=== PATIENT | male | born 1970 | race Caucasian/White ===

== ENCOUNTER 2016-11-10 09:13 | Emergency (ER) | payer SELFPAY | END 2016-11-10 10:45 | disposition left against medical advice (07) | LOC: NAV ERS 09:13 | DX: K40.90 Unilateral inguinal hernia, without obstruction or gangrene, not specified as recurrent (principal); F17.210 Nicotine dependence, cigarettes, uncomplicated | CPT/HCPCS: 99283 ==

== ENCOUNTER 2017-12-02 12:24 | Outpatient (CLI) | payer OTHER ==
--- NOTE | 2017-12-02 15:15 | RAD ---
LUMBAR SPINE 3 VIEWS: HISTORY: Low back pain, disability evaluation. FINDINGS/IMPRESSION: There are mild degenerative changes with mild levoscoliosis of the lumbar spine. No fracture, sublux ation, or bony destruction is identified. POS: OFF
== END 2017-12-02 12:25 | disposition home or self-care (01) ==
LOC: NAV RAD 12:24
PROVIDERS: ATTEND Family Medicine
DX: M54.5 Low back pain (principal); M47.896 Other spondylosis, lumbar region; M41.86 Other forms of scoliosis, lumbar region
CPT/HCPCS: 72100

== ENCOUNTER 2018-03-31 20:44 | Emergency (ER) | payer OTHER, SELFPAY | END 2018-03-31 21:53 | disposition left against medical advice (07) | LOC: NAV ERS 20:44 | DX: K40.90 Unilateral inguinal hernia, without obstruction or gangrene, not specified as recurrent (principal); Z87.891 Personal history of nicotine dependence | CPT/HCPCS: 93005; 94760 ==

== ENCOUNTER 2018-07-29 21:46 | Emergency (ER) | payer SELFPAY ==
[2018-07-29] MEDS ORDERED: AMOXicillin 250 MG CAP ONE (22:16)
[2018-07-29] MEDS ORDERED: Naproxen 500 MG TAB ONE (22:16)
[2018-07-29] MEDS ORDERED: Penicillin V Potassium 250 MG TAB ONE (22:26)
== END 2018-07-29 22:20 | disposition home or self-care (01) ==
LOC: NAV ERS 21:46
DX: K02.9 Dental caries, unspecified (principal); Z87.891 Personal history of nicotine dependence
CPT/HCPCS: 99283

== ENCOUNTER 2019-02-13 13:59 | Emergency (ER) | payer OTHER, SELFPAY ==
[2019-02-13] MEDS ORDERED: Sodium Chloride 0.9% 1,000 ML ONE (15:22)
[2019-02-13] MEDS ORDERED: Piperacillin/Tazobactam 4.5 GM VIAL ONE (15:22)
[2019-02-13 15:26] LABS: #Basophils 0.1 thou/uL (0.0-0.2); #Eosinphils 0.1 thou/uL (0.0-0.7); #Lymphocytes 1.3 thou/uL (1.20-3.40); #Monocytes 1.3 thou/uL (0.11-0.59); #Neutrophils 7.9 thou/uL (1.40-6.50); %Basophils 0.7 % (0.0-1.0); %Eosinophils 0.6 % (0.0-10.0); %Lymphocytes 12.5 % (21.0-51.0); %Neutrophils 74.2 % (42.0-75.0); Hemoglobin 13.6 g/dL (14.0-18.0); Mean Corpuscular HGB CONC 32.1 g/dL (32.0-36.0); Mean Corpuscular Hemoglobin 26.6 pg (27.0-31.0); Mean Corpuscular Volume 82.8 fL (78.0-98.0); Mean Platelet Volume 7.1 fL (7.4-10.4); Platelet Count 182 thou/uL (130-400); RBC Distribution Width 13.8 % (11.5-14.5); Red Blood Cell (RBC) Count 5.11 mill/uL (4.70-6.10); White Blood Cell (WBC) Count 10.6 thou/uL (4.8-10.8)
[2019-02-13] MEDS ORDERED: Vancomycin HCl 500 MG VIAL ONE (15:27)
[2019-02-13] MEDS ORDERED: Sodium Chloride 0.9% 500 ML ONE (15:30)
[2019-02-13 15:47] LABS: ALT (SGPT) 15 U/L (8-55); AST (SGOT) 20 U/L (5-34); Albumin 3.9 g/dL (3.5-5.0); Alkaline Phosphatase 67 U/L (40-150); Anion Gap 15 mmol/L (10-20); BUN (Urea Nitrogen) 22 mg/dL (8.9-20.6); Bilirubin, Total 0.7 mg/dL (0.2-1.2); CK (CPK) 161 U/L (30-200); Calc. Creatinine Clearance 0 mL/min (70-130); Calcium 9.2 mg/dL (7.8-10.44); Carbon Dioxide 24 mmol/L (22-29); Chloride 103 mmol/L (98-107); Estimated GFR-MDRD 66; Globulin 3.3 g/dL (2.4-3.5); Glucose 104 mg/dL (70-105); Protein, Total 7.2 g/dL (6.0-8.3); Sodium 138 mmol/L (136-145)
[2019-02-13] MEDS ORDERED: Sodium Chloride 0.9% 2,000 ML ONE (15:56)
== END 2019-02-13 18:00 | disposition short-term general hospital (02) ==
LOC: NAV ERS 13:59
DX: L03.116 Cellulitis of left lower limb (principal); L03.115 Cellulitis of right lower limb; L03.311 Cellulitis of abdominal wall; M19.90 Unspecified osteoarthritis, unspecified site; F32.9 Major depressive disorder, single episode, unspecified; Z87.891 Personal history of nicotine dependence
CPT/HCPCS: 36415; 80053; 82550; 83605; 84550; 85025; 87040; 96365; 96366; J2543; J3370; J7050

== ENCOUNTER 2021-10-08 11:52 | Emergency (ER) | payer MEDICAID, OTHER ==
[2021-10-08] MEDS ORDERED: Lidocaine 1% (PF) 30 ML VIAL ONE (12:32)
[2021-10-08] MEDS ORDERED: Boostrix 0.5 ML (Tdap) VIAL ONE (13:22)
[2021-10-08] MEDS ORDERED: Sulfameth/Trimethoprim DS 800-160mg TAB ONE (13:22)
== END 2021-10-08 13:35 | disposition home or self-care (01) ==
LOC: NAV ERS 11:52
DX: L02.415 Cutaneous abscess of right lower limb (principal); I83.019 Varicose veins of right lower extremity with ulcer of unspecified site; K46.9 Unspecified abdominal hernia without obstruction or gangrene; M86.8X6 Other osteomyelitis, lower leg; Z87.891 Personal history of nicotine dependence; Z23 Encounter for immunization
CPT/HCPCS: 10060; 87070; 87077; 87186; 87205; 90471; 90715; J2001

== ENCOUNTER 2022-01-02 09:51 | Emergency (ER) | payer OTHER ==
[2022-01-02] MEDS ORDERED: Lidocaine 1% (PF) 30 ML VIAL ONE (10:17)
[2022-01-02] MEDS ORDERED: Sulfameth/Trimethoprim DS 800-160mg TAB ONE (10:40)
[2022-01-02] MEDS ORDERED: Bacitracin 1 PK ONE (10:40)
[2022-01-02] MEDS ORDERED: Boostrix 0.5 ML (Tdap) VIAL ONE (10:40)
== END 2022-01-02 11:00 | disposition home or self-care (01) ==
LOC: NAV ERS 09:51
DX: L02.416 Cutaneous abscess of left lower limb (principal); Z87.891 Personal history of nicotine dependence
CPT/HCPCS: 10060; 87070; 87077; 87186; 87205; 90471; 90715; J2001

== ENCOUNTER 2022-01-05 07:00 | Emergency (ER) | payer OTHER ==
[2022-01-05 07:45] LABS: #Basophils 0.1 thou/uL (0.0-0.2); #Eosinphils 0.2 thou/uL (0.0-0.7); #Lymphocytes 1.4 thou/uL (1.20-3.40); #Monocytes 0.7 thou/uL (0.11-0.59); #Neutrophils 3.6 thou/uL (1.40-6.50); %Basophils 1.3 % (0.0-1.0); %Eosinophils 2.8 % (0.0-10.0); %Lymphocytes 23.3 % (21.0-51.0); %Monocytes 12.4 % (0.0-10.0); %Neutrophils 60.3 % (42.0-75.0); Mean Corpuscular HGB CONC 30.4 g/dL (32.0-36.0); Mean Corpuscular Hemoglobin 23.9 pg (27.0-31.0); Mean Corpuscular Volume 78.5 fL (78.0-98.0); Mean Platelet Volume 7.4 fL (7.4-10.4); Platelet Count 329 thou/uL (130-400); RBC Distribution Width 16.7 % (11.5-14.5)
[2022-01-05] MEDS ORDERED: Sulfameth/Trimethoprim DS 800-160mg TAB ONE (07:56)
[2022-01-05 07:57] LABS: Acetaminophen Less than 10.0 mcg/mL (10.0-30.0); Alcohol Less than 10 mg/dL (Less than 10); Salicylate Less than 8.0 mg/dL (15.0-30.0)
[2022-01-05 07:58] LABS: Magnesium 1.8 mg/dL (1.6-2.6)
[2022-01-05 08:08] LABS: Bilirubin Negative (Negative); Blood, Urine Negative (Negative); Clarity Clear (Clear); Glucose, Urine (Dipstick) 100 mg/dL (Negative); Ketone, Urine Negative (Negative); Leukocyte Negative (Negative); Nitrite Negative (Negative); Protein, Urine (Dipstick) Trace mg/dL (Neg-Trace); Urobilinogen 0.2 mg/dL (Less than 2)
[2022-01-05 08:10] LABS: Specific Gravity, Urine 1.026 (1.002-1.036)
[2022-01-05 08:12] LABS: Amphetamine Detected (NotDetected); Cocaine Metabolite Screen Not Detected (NotDetected); Methamphetamine Detected (NotDetected); Opiate Screen Detected (NotDetected); Phencyclidine (PCP) Not Detected (NotDetected); THC/Cannabinoid Screen Detected (NotDetected)
[2022-01-05 08:13] LABS: Barbiturates Screen Not Detected (NotDetected); Benzodiazepine Screen Not Detected (NotDetected); Medtox Control Line Valid? VALID (VALID); Methadone Not Detected (NotDetected); Oxycodone Screen Not Detected (NotDetected); Tricyclic Screen Not Detected (NotDetected)
[2022-01-05 08:21] LABS: Platelet Morphology Comment Appears Adequate; RBC Morphology Normal
[2022-01-05 08:46] LABS: ALT (SGPT) 16 U/L (8-55); AST (SGOT) 17 U/L (5-34); Albumin 3.7 g/dL (3.5-5.0); Alkaline Phosphatase 66 U/L (40-110); Anion Gap 16 mmol/L (10-20); BUN (Urea Nitrogen) 16 mg/dL (8.4-25.7); Bilirubin, Total 0.2 mg/dL (0.2-1.2); Calc. Creatinine Clearance 0 mL/min (70-130); Calcium 9.1 mg/dL (7.8-10.44); Carbon Dioxide 23 mmol/L (22-29); Chloride 107 mmol/L (98-107); Globulin 4.2 g/dL (2.4-3.5); Glucose 117 mg/dL (70-105); Potassium 4.2 mmol/L (3.5-5.1); Protein, Total 7.9 g/dL (6.0-8.3); Sodium 142 mmol/L (136-145)
[2022-01-05] MEDS ORDERED: Iopamidol 370 76% 100 ML VIAL ONE (09:00)
== END 2022-01-05 10:50 ==
LOC: NAV ERS 07:00
DX: I87.2 Venous insufficiency (chronic) (peripheral) (principal); L02.416 Cutaneous abscess of left lower limb; F15.10 Other stimulant abuse, uncomplicated; F11.10 Opioid abuse, uncomplicated; Z79.899 Other long term (current) drug therapy
CPT/HCPCS: 71045; 71275; 80053; 80306; 80307; 81003; 83735; 83880; 84484; 85025; 85379; 93005; 94760; Q9967

== ENCOUNTER → 2022-03-31 | Emergency (ER) | payer OTHER | LOC: NAV ERS 19:05 | DX: M25.551 Pain in right hip (principal); W19.XXXA Unspecified fall, initial encounter | CPT/HCPCS: 99283 ==

== ENCOUNTER 2022-12-26 00:31 | Emergency (ER) | payer OTHER ==
[2022-12-26] MEDS ORDERED: Cefepime 2 GM VIAL ONE ×2 (01:48→10:14)
[2022-12-26] MEDS ORDERED: Sodium Chloride 0.9% 100 ML ONE ×2 (01:48→10:14)
[2022-12-26 01:49] LABS: #Eosinphils 0.1 thou/uL (0.0-0.7); #Lymphocytes 1.1 thou/uL (1.20-3.40); #Monocytes 0.5 thou/uL (0.11-0.59); #Neutrophils 3.3 thou/uL (1.40-6.50); %Basophils 0.3 % (0.0-1.0); %Eosinophils 1.9 % (0.0-10.0); %Lymphocytes 21.8 % (21.0-51.0); %Monocytes 9.6 % (0.0-10.0); %Neutrophils 66.5 % (42.0-75.0); Hemoglobin 9.4 g/dL (14.0-18.0); Mean Corpuscular HGB CONC 29.7 g/dL (32.0-36.0); Mean Corpuscular Hemoglobin 21.2 pg (27.0-31.0); Mean Corpuscular Volume 71.3 fl (78.0-98.0); Mean Platelet Volume 5.1 fL (7.4-10.4); Platelet Count 406 10x3/uL (130-400); RBC Distribution Width 16.2 % (11.5-14.5); Red Blood Cell (RBC) Count 4.42 mill/uL (4.70-6.10)
[2022-12-26 02:03] LABS: Anion Gap 20 mmol/L (10-20); BUN (Urea Nitrogen) 16 mg/dL (8.4-25.7); CRP (Inflammatory) 6.52 mg/dL (= or < 0.5); Calc. Creatinine Clearance 0 mL/min (70-130); Calcium 8.8 mg/dL (7.8-10.44); Carbon Dioxide 22 mmol/L (22-29); Chloride 104 mmol/L (98-107); Estimated GFR 91; Glucose 139 mg/dL (70-105); Sodium 141 mmol/L (136-145)
[2022-12-26] MEDS ORDERED: Vancomycin HCl 500 MG VIAL ONE (02:16)
[2022-12-26] MEDS ORDERED: Sodium Chloride 0.9% 500 ML ONE (02:16)
[2022-12-26] MEDS ORDERED: Vancomycin 1 GM VIAL ONE (02:16)
[2022-12-26 02:19] LABS: Potassium 4.5 mmol/L (3.5-5.1)
[2022-12-26] MEDS ORDERED: cloNIDine 0.1 MG TAB ONE (09:51)
== END 2022-12-26 11:42 | disposition left against medical advice (07) ==
LOC: NAV ERS 00:31
DX: L03.115 Cellulitis of right lower limb (principal); M00.9 Pyogenic arthritis, unspecified; F11.23 Opioid dependence with withdrawal
CPT/HCPCS: 80048; 85025; 86140; 96365; 96366; 96367; J0692; J3370; J3490; J7030

== ENCOUNTER 2023-02-16 21:17 | Emergency (ER) | payer OTHER ==
[2023-02-16 22:19] LABS: #Eosinphils 0.1 thou/uL (0.0-0.7); #Lymphocytes 1.3 thou/uL (1.20-3.40); #Monocytes 0.5 thou/uL (0.11-0.59); #Neutrophils 2.5 thou/uL (1.40-6.50); %Basophils 0.9 % (0.0-1.0); %Eosinophils 2.7 % (0.0-10.0); %Lymphocytes 29.4 % (21.0-51.0); %Monocytes 10.8 % (0.0-10.0); %Neutrophils 56.1 % (42.0-75.0); Hemoglobin 11.5 g/dL (14.0-18.0); Mean Corpuscular HGB CONC 30.1 g/dL (32.0-36.0); Mean Corpuscular Volume 76.3 fl (78.0-98.0); Mean Platelet Volume 7.1 fL (7.4-10.4); Platelet Count 227 10x3/uL (130-400); RBC Distribution Width 18.7 % (11.5-14.5); Red Blood Cell (RBC) Count 5.02 mill/uL (4.70-6.10); White Blood Cell (WBC) Count 4.4 10x3/uL (4.8-10.8)
[2023-02-16 22:32] LABS: Prothrombin Time 13.7 sec (12.0-14.7)
[2023-02-16 22:33] LABS: PTT 31.7 sec (22.9-36.1)
[2023-02-16 22:37] LABS: Anion Gap 14 mmol/L (10-20); BUN (Urea Nitrogen) 21 mg/dL (8.4-25.7); Calc. Creatinine Clearance 0 mL/min (70-130); Calcium 9.4 mg/dL (7.8-10.44); Carbon Dioxide 26 mmol/L (22-29); Chloride 104 mmol/L (98-107); Estimated GFR 84; Glucose 94 mg/dL (70-105); Potassium 3.7 mmol/L (3.5-5.1); Sodium 140 mmol/L (136-145)
== END 2023-02-16 23:05 | disposition left against medical advice (07) ==
LOC: NAV ERS 21:17
DX: S71.001A Unspecified open wound, right hip, initial encounter (principal); X58.XXXA Exposure to other specified factors, initial encounter
CPT/HCPCS: 36415; 80048; 83605; 85025; 85610; 85730; 86140; 87040; 87070; 87205; 99284

== ENCOUNTER 2023-09-25 05:18 | Emergency (ER) | payer OTHER ==
[2023-09-25] MEDS ORDERED: Morphine 2 MG/ML VIAL ONE (05:41)
[2023-09-25] MEDS ORDERED: Furosemide 20 MG (2 mL) VIAL ONE (05:51)
[2023-09-25] MEDS ORDERED: Nitroglycerin 2% Ointment 1 INCH/1 GM Packet ONE (05:52)
[2023-09-25 05:53] LABS: Hematocrit 36.3 % (42.0-52.0); Hemoglobin 11.4 g/dL (14.0-18.0); Mean Corpuscular HGB CONC 31.4 g/dL (32.0-36.0); Mean Corpuscular Hemoglobin 24.3 pg (27.0-31.0); Mean Corpuscular Volume 77.4 fl (78.0-98.0); Red Blood Cell (RBC) Count 4.69 mill/uL (4.70-6.10); White Blood Cell (WBC) Count 23.5 10x3/uL (4.8-10.8)
[2023-09-25 05:54] LABS: #Neutrophils 20.6 thou/uL (1.40-6.50); %Basophils 0.4 % (0.0-1.0); %Eosinophils 0.1 % (0.0-10.0); %Lymphocytes 4.2 % (21.0-51.0); %Monocytes 7.7 % (0.0-10.0); %Neutrophils 87.6 % (42.0-75.0); Manual Diff?? NO; Mean Platelet Volume 7.7 fL (7.4-10.4); Platelet Count 220 10x3/uL (130-400); RBC Distribution Width 16.6 % (11.5-14.5)
[2023-09-25 05:55] LABS: #Basophils 0.1 thou/uL (0.0-0.2); #Monocytes 1.8 thou/uL (0.11-0.59); Glucose 142 mg/dL (70-105)
[2023-09-25 05:58] LABS: ALT (SGPT) 11 U/L (8-55); AST (SGOT) 20 U/L (5-34); Albumin 3.6 g/dL (3.5-5.0); Alkaline Phosphatase 136 U/L (40-110); Anion Gap 16 mmol/L (10-20); BUN (Urea Nitrogen) 40 mg/dL (8.4-25.7); Bilirubin, Total 0.9 mg/dL (0.2-1.2); Calc. Creatinine Clearance 0 mL/min (70-130); Calcium 9.2 mg/dL (7.8-10.44); Carbon Dioxide 24 mmol/L (22-29); Chloride 97 mmol/L (98-107); Estimated GFR 57; Globulin 4.6 g/dL (2.4-3.5); Potassium 3.5 mmol/L (3.5-5.1); Protein, Total 8.2 g/dL (6.0-8.3); Sodium 133 mmol/L (136-145)
[2023-09-25 06:01] LABS: Base Excess-Venous -0.2 mmol/L (-2.0 to 3.0); Bicarbonate (HCO3v) 26.6 mmol/L (22.0-28.0); CO2 Tension (PvCO2) 51.4 mmHg (42.0-51.0); Calcium, Ionized 1.12 mmol/L (1.15-1.33); Chloride 98 mmol/L (98-107); Hemoglobin - Calc 13.5 g/dL (14.0-18.0); Potassium 3.5 mmol/L (3.5-5.1); Sodium 139 mmol/L (138-145); T. Carbon Dioxide 28.2 mmol/L (22.0-28.0); vO2 Saturation-calc 88.9 % (60.0-85.0)
[2023-09-25] MEDS ORDERED: Acetaminophen 325 MG TAB ONE (06:05)
[2023-09-25 06:06] LABS: Bilirubin Negative (Negative); Blood, Urine Moderate (Negative); Clarity Clear (Clear); Glucose, Urine (Dipstick) Negative (Negative); Ketone, Urine Negative (Negative); Leukocyte Negative (Negative); Nitrite Negative (Negative); Protein, Urine (Dipstick) 100 mg/dL (Neg-Trace); Specific Gravity, Urine 1.025 (1.005-1.030); pH, Urine 5.5 (5.0-9.0)
[2023-09-25 06:07] LABS: Troponin I Less than 0.010 ng/mL (< 0.028)
[2023-09-25 06:08] LABS: CAUTI Indications for Culture Fever or rigors; Squamous Epithelial 0-3 HPF (0-3); WBC/HPF 0-3 HPF (0-3)
[2023-09-25 06:09] LABS: Urine Culture Reflex No No
[2023-09-25] MEDS ORDERED: cefTRIAXone (ROCEPHIN) 1 GM VIAL ONE (06:10)
[2023-09-25] MEDS ORDERED: Lorazepam 2 MG/ML VIAL ONE (06:15)
[2023-09-25 06:18] LABS: SARS-CoV-2 NAA Rapid Test Not Detected (NotDetected)
[2023-09-25] MEDS ORDERED: Azithromycin 500 MG VIAL ONE (06:48)
[2023-09-25] MEDS ORDERED: Iopamidol 370 76% 100 ML VIAL ONE ×2 (09:00)
== END 2023-09-25 07:17 | disposition short-term general hospital (02) ==
LOC: NAV ERS 05:18
DX: A41.9 Sepsis, unspecified organism (principal); J18.9 Pneumonia, unspecified organism; J90 Pleural effusion, not elsewhere classified; N19 Unspecified kidney failure
CPT/HCPCS: 71045; 71260; 74177; 80053; 81001; 82330; 82803; 83605; 83880; 84484; 85025; 87040; 87077; 87149; 87186; 87804; 96374; 96375; J0456; J0696; J1940; J2060; J2272; Q9967; U0002

== ENCOUNTER 2023-11-10 11:37 | Emergency (ER) | payer OTHER ==
[2023-11-10] MEDS ORDERED: Azithromycin 250 MG TAB ONE (12:37)
[2023-11-11 01:13] LABS: SARS-CoV-2 N1 Negative; SARS-CoV-2 N2 Negative; SARS-CoV-2 RNAse P1 Positive; SARS-CoV-2 RNAse P2 Positive
== END 2023-11-10 12:55 | disposition home or self-care (01) ==
LOC: NAV ERS 11:37
DX: J18.9 Pneumonia, unspecified organism (principal)
CPT/HCPCS: 71046; 87635

== ENCOUNTER 2024-05-09 15:14 | Emergency (ER) | payer OTHER ==
[~2024-05-09 15:14] MED LIST: Iopamidol 370 76% 100 ML VIAL ONE
[2024-05-09] MEDS ORDERED: Ketorolac Tromethamine 30 MG (1 mL) VIAL ONE (16:18)
[2024-05-09 16:25] LABS: #Basophils 0.1 thou/uL (0.0-0.2); #Eosinphils 0.3 thou/uL (0.0-0.7); #Lymphocytes 2.1 thou/uL (1.20-3.40); #Monocytes 1.4 thou/uL (0.11-0.59); #Neutrophils 6.1 thou/uL (1.40-6.50); %Basophils 0.9 % (0.0-1.0); %Eosinophils 2.8 % (0.0-10.0); %Lymphocytes 21.3 % (21.0-51.0); %Monocytes 13.7 % (0.0-10.0); %Neutrophils 61.2 % (42.0-75.0); Hematocrit 45.1 % (42.0-52.0); Hemoglobin 15.1 g/dL (14.0-18.0); Mean Corpuscular HGB CONC 33.5 g/dL (32.0-36.0); Mean Corpuscular Hemoglobin 25.7 pg (27.0-31.0); Mean Corpuscular Volume 76.6 fl (78.0-98.0); Platelet Count 208 10x3/uL (130-400); RBC Distribution Width 14.1 % (11.5-14.5); Red Blood Cell (RBC) Count 5.88 mill/uL (4.70-6.10); White Blood Cell (WBC) Count 9.9 10x3/uL (4.8-10.8)
[2024-05-09] MEDS ORDERED: Ondansetron PF 4 MG/2 ML Vial IVP SCH (16:30)
[2024-05-09] MEDS ORDERED: Ketorolac Tromethamine 30 MG (1 mL) VIAL IVP SCH (16:30)
[2024-05-09 16:40] LABS: ALT (SGPT) 38 U/L (8-55); AST (SGOT) 36 U/L (5-34); Albumin 3.7 g/dL (3.5-5.0); Alkaline Phosphatase 87 U/L (40-110); Anion Gap 15 mmol/L (10-20); BUN (Urea Nitrogen) 16 mg/dL (8.4-25.7); Bilirubin, Total 0.5 mg/dL (0.2-1.2); Calc. Creatinine Clearance 0 mL/min (70-130); Carbon Dioxide 18 mmol/L (22-29); Chloride 108 mmol/L (98-107); Estimated GFR 94; Globulin 4.1 g/dL (2.4-3.5); Glucose 106 mg/dL (70-105); Potassium 3.7 mmol/L (3.5-5.1); Protein, Total 7.8 g/dL (6.0-8.3); Sodium 137 mmol/L (136-145)
[2024-05-09 16:49] LABS: Bilirubin Negative (Negative); Blood, Urine Negative (Negative); Clarity Clear (Clear); Glucose, Urine (Dipstick) Negative (Negative); Ketone, Urine Negative (Negative); Leukocyte Negative (Negative); Nitrite Negative (Negative); Protein, Urine (Dipstick) Trace mg/dL (Neg-Trace); Urobilinogen 0.2 mg/dL (Less than 2); pH, Urine 5.5 (5.0-9.0)
[2024-05-09 16:54] LABS: CAUTI Indications for Culture Pelvic or flank pain; RBC/HPF 0-3 HPF (0-3); Specific Gravity, Urine 1.026 (1.005-1.030); Squamous Epithelial 0-3 HPF (0-3); WBC/HPF None Seen HPF (0-3)
[2024-05-09 16:55] LABS: Mucous/LPF 1+ LPF (<2+)
[2024-05-09 16:56] LABS: Urine Culture Reflex No No
[2024-05-09] MEDS ORDERED: Ondansetron PF 4 MG/2 ML Vial ONE (17:00)
== END 2024-05-09 17:49 | disposition short-term general hospital (02) ==
LOC: NAV ERS 15:14
DX: K40.90 Unilateral inguinal hernia, without obstruction or gangrene, not specified as recurrent (principal); M25.551 Pain in right hip; Z87.39 Personal history of other diseases of the musculoskeletal system and connective tissue
CPT/HCPCS: 74177; 80053; 81001; 85025; 96374; 96375; J1885; J2405; Q9967

== ENCOUNTER 2025-04-13 09:23 | Emergency (ER) | payer OTHER, SELFPAY ==
[2025-04-13 10:23] LABS: #Basophils 0.1 thou/uL (0.0-0.2); #Eosinophils 0.0 thou/uL (0.0-0.7); #Lymphocytes 1.1 thou/uL (1.20-3.40); #Monocytes 1.3 thou/uL (0.11-0.59); #Neutrophils 8.6 thou/uL (1.40-6.50); %Basophils 0.6 % (0.0-1.0); %Eosinophils 0.3 % (0.0-10.0); %Lymphocytes 10.0 % (21.0-51.0); %Monocytes 11.5 % (0.0-10.0); %Neutrophils 77.6 % (42.0-75.0); Hematocrit 47.1 % (42.0-52.0); Hemoglobin 15.9 g/dL (14.0-18.0); Mean Corpuscular Hemoglobin 28.2 pg (27.0-31.0); Mean Corpuscular Volume 83.8 fl (78.0-98.0); Platelet Count 285 10x3/uL (130-400); Red Blood Cell (RBC) Count 5.63 mill/uL (4.70-6.10); White Blood Cell (WBC) Count 11.0 10x3/uL (4.8-10.8)
[2025-04-13 10:43] LABS: ALT (SGPT) 10 U/L (Less than 45); AST (SGOT) 25 U/L (11-34); Albumin 4.1 g/dL (3.1-4.5); Alkaline Phosphatase 67 U/L (40-110); Anion Gap 19 mmol/L (10-20); BUN (Urea Nitrogen) 35 mg/dL (8.4-25.7); Bilirubin, Total 0.7 mg/dL (0.3-1.2); Calc. Creatinine Clearance 0 mL/min (70-130); Calcium 9.9 mg/dL (7.8-10.44); Carbon Dioxide 20 mmol/L (22-29); Chloride 105 mmol/L (98-107); Globulin 4.4 g/dL (2.4-3.5); Glucose 141 mg/dL (70-105); Potassium 3.4 mmol/L (3.5-5.1); Sodium 141 mmol/L (136-145)
[2025-04-13 10:45] LABS: Troponin I 0.041 ng/mL (< 0.028)
[2025-04-13] MEDS ORDERED: Aspirin Chewable 81 MG TAB ONE (10:55)
[2025-04-13] MEDS ORDERED: cefTRIAXone (ROCEPHIN) 2 GM VIAL ONE (11:44)
[2025-04-13] MEDS ORDERED: Azithromycin 500 MG VIAL ONE (12:11)
== END 2025-04-13 13:00 | disposition short-term general hospital (02) ==
LOC: NAV ERS 09:23
DX: N17.9 Acute kidney failure, unspecified (principal); I21.4 Non-ST elevation (NSTEMI) myocardial infarction
CPT/HCPCS: 71046; 80053; 83605; 83880; 84484; 85025; 87040; 87077; 87149; 93005; 94640; 96374; 96375; J0456; J0696; J7030; J7050; J7620

== ENCOUNTER 2025-04-25 12:00 | Emergency (ER) | payer OTHER, SELFPAY ==
[2025-04-25 12:57] LABS: #Basophils 0.2 thou/uL (0.0-0.2); #Eosinophils 0.1 thou/uL (0.0-0.7); #Lymphocytes 1.4 thou/uL (1.20-3.40); #Monocytes 1.0 thou/uL (0.11-0.59); #Neutrophils 8.0 thou/uL (1.40-6.50); %Basophils 1.6 % (0.0-1.0); %Eosinophils 0.5 % (0.0-10.0); %Lymphocytes 13.4 % (21.0-51.0); %Monocytes 9.5 % (0.0-10.0); %Neutrophils 75.0 % (42.0-75.0); Hematocrit 48.4 % (42.0-52.0); Hemoglobin 16.2 g/dL (14.0-18.0); Mean Corpuscular Hemoglobin 28.1 pg (27.0-31.0); Mean Corpuscular Volume 84.0 fl (78.0-98.0); Platelet Count 416 10x3/uL (130-400); Red Blood Cell (RBC) Count 5.77 mill/uL (4.70-6.10); White Blood Cell (WBC) Count 10.6 10x3/uL (4.8-10.8)
[2025-04-25 13:13] LABS: ALT (SGPT) 22 U/L (Less than 45); AST (SGOT) 26 U/L (11-34); Albumin 4.1 g/dL (3.1-4.5); Alkaline Phosphatase 71 U/L (40-110); Anion Gap 16 mmol/L (10-20); BUN (Urea Nitrogen) 20 mg/dL (8.4-25.7); Bilirubin, Total 0.7 mg/dL (0.3-1.2); Calc. Creatinine Clearance 0 mL/min (70-130); Calcium 9.2 mg/dL (7.8-10.44); Carbon Dioxide 22 mmol/L (22-29); Chloride 107 mmol/L (98-107); Globulin 3.9 g/dL (2.4-3.5); Glucose 113 mg/dL (70-105); Potassium 3.9 mmol/L (3.5-5.1); Sodium 141 mmol/L (136-145)
[2025-04-25 13:15] LABS: Troponin I 0.010 ng/mL (< 0.028)
[2025-04-25] MEDS ORDERED: LevoFLOXacin 750 mg/D5W 150 ml Premix Bag ONE (14:13)
[2025-04-25] MEDS ORDERED: Cefepime 2 GM VIAL ONE (14:14)
[2025-04-25 15:44] LABS: Glucose, Urine (Dipstick) Negative (Negative); Leukocyte Negative (Negative); Protein, Urine (Dipstick) 30 mg/dL (Neg-Trace); Specific Gravity, Urine 1.025 (1.005-1.030)
[2025-04-25 16:01] LABS: Bacteria/HPF 1+ HPF (None Seen); CAUTI Indications for Culture Fever or rigors; Mucous/LPF 2+ LPF (<2+); RBC/HPF 0-3 HPF (0-3); WBC/HPF 0-3 HPF (0-3)
[2025-04-25 16:02] LABS: Urine Culture Reflex No No
== END 2025-04-25 17:23 | disposition home or self-care (01) ==
LOC: NAV ERS 12:00
DX: R53.81 Other malaise (principal); R78.81 Bacteremia; R06.02 Shortness of breath; R05.9 Cough, unspecified
CPT/HCPCS: 36415; 71046; 80053; 81001; 83605; 83880; 84484; 85025; 87040; 87426; 93005; 96365; 96366; 96367; J0692; J1956; J7030